=== PATIENT | female | born 1935 | race Caucasian/White ===

== ENCOUNTER 2017-03-22 13:57 | Inpatient (IN) | payer MEDICARE ==
[~2017-03-22] VITALS: Ht 157.5 cm; Wt 45.4 kg
[2017-03-22] MEDS: LEVOTHYROXINE 25 MCG TABLET. PO SCH (07:00)
[2017-03-22 16:46] VITALS: BP 159/79
[2017-03-22] MEDS ORDERED: SENN1TAB37 PO (18:30)
[2017-03-22] MEDS ORDERED: CYAN100031 PO (18:30)
[2017-03-22] MEDS ORDERED: SERT50TA8 PO (18:30)
[2017-03-22] MEDS ORDERED: ACET325T9 PO (18:30)
[2017-03-22] MEDS ORDERED: MIRT15TA3 PO (18:30)
[2017-03-22] MEDS ORDERED: CHOL10003 PO (18:30)
[2017-03-22] MEDS ORDERED: DIVA125C PO (18:30)
[2017-03-22] MEDS ORDERED: [UNRECOGNIZED DRUG - CODE] PO (18:30)
[2017-03-22] MEDS ORDERED: POLY17PO3 PO (18:30)
[2017-03-22] MEDS ORDERED: TRAM50TA PO (18:30)
[2017-03-22] MEDS ORDERED: HYDR25SU3 RC (18:30)
[2017-03-22] MEDS ORDERED: MAGN2400 PO (18:30)
[2017-03-22] MEDS ORDERED: LEVO25TA4 PO (18:30)
[2017-03-22] MEDS ORDERED: OLAN5TAB9 PO (18:30)
[2017-03-22] MEDS ORDERED: MEMA10TA PO (18:30)
[2017-03-22] MEDS ORDERED: LACT1CAP6 PO (18:30)
[2017-03-22] MEDS ORDERED: MELA3TAB12 PO (18:30)
[2017-03-22] MEDS ORDERED: BISA-42 RC (18:30)
[2017-03-22] MEDS ORDERED: NON FORMULARY ITEM (Melatonin 3 MG) PO PRN (18:45)
[2017-03-22] MEDS ORDERED: BISACODYL 5 MG TABLET.DR. PO PRN (18:45)
[2017-03-22] MEDS ORDERED: POLYETHYLENE GLYCOL 3350 17 GM PACKET. PO PRN (18:45)
[2017-03-22] MEDS ORDERED: MAGNESIUM HYDROXIDE 2,400 MG/30 ML ORAL.SUSP. PO PRN (18:45)
[2017-03-22] MEDS ORDERED: ACETAMINOPHEN 325 MG TABLET. PO PRN (18:45)
[2017-03-22] MEDS ORDERED: OLANZapine 5 MG TABLET PO PRN (18:45)
[2017-03-22] MEDS ORDERED: HYDROCORTISONE ACETATE 25 MG SUPP.RECT RC PRN (18:45)
[2017-03-22] MEDS ORDERED: traMADol 50 MG TABLET PO PRN (18:45)
[2017-03-22 19:15] VITALS: BP 156/72
[2017-03-22] MEDS: SENNOSIDES/DOCUSATE 8.6/50MG TABLET. PO SCH (20:49)
[2017-03-22] MEDS: MIRTAZAPINE 15 MG TABLET PO SCH (20:52)
[2017-03-22] MEDS: MEMANTINE 10 MG TABLET. PO SCH (20:53)
[2017-03-22 22:59] VITALS: BP 145/77
--- NOTE | 2017-03-22 23:52 | HP ---
ADMIT DATE: 03/22/2017 CHIEF COMPLAINT: Fall with right wrist fracture, right wrist pain. HISTORY OF PRESENT ILLNESS: The patient is a pleasant 81-year-old female who fell. She now has a right wrist fracture. She also has a laceration on her right scalp right above the ear. The ER doctor put two julieta on it and ____ the patient with consultation to Ortho. She is going to surgery in the morning. PAST MEDICAL HISTORY: Dementia. ALLERGIES: None. FAMILY HISTORY: Diabetes. SOCIAL HISTORY: She does not drink, smoke or take drugs. She lives in the facility. MEDICATIONS: Reviewed, please refer to the MRAD. REVIEW OF SYSTEMS: Unobtainable, the patient is too confused. PHYSICAL EXAMINATION: VITAL SIGNS: Temperature afebrile, pulse 67, respirations 18, blood pressure 133/69. GENERAL: She is alert. She is pleasantly confused. HEART: Normal S1, S2. LUNGS: Clear. ABDOMEN: Soft. EXTREMITIES: Trace edema. The right wrist is in a brace. Neurovascular bundle is intact. ENDOCRINE: No thyromegaly. LYMPHATICS: No cervical nodes. HEMATOPOIETIC: No bruising. HEENT: She has got a slight cut above the right ear with two julieta. ASSESSMENT AND PLAN: Fall with right wrist fracture in an elderly female who has dementia. She also has a laceration on her scalp. She has been admitted. Will consult Orthopedics. She is going to surgery in the morning. Continue home medicines. VILLA GARCIA DO DR: LINNEA/yoana JOB#: [id number] / [id number]
[2017-03-23] VITALS (10 sets, daily range): BP systolic 112–168; BP diastolic 56–78
--- NOTE | 2017-03-23 05:48 | ACF ---
Admission Forms Criteria MUSCULOSKELETAL DISEASE GRG Clinical Indications for Admission to Inpatient Care (Place 'X' for any and all applicable criteria): Hospital admission is needed for appropriate care of the patient because of 1 or more of the following: [X]I. Fracture, dislocation, or other musculoskeletal injury requiring inpatient care(medical) as indicated by 1 or more of the following(4)(5)(6)(7) [ ]a) Vertebral fracture requiring observation for instability or neurologic compromise (8) [ ]b) Compartment syndrome (proven or cannot be ruled out during observation level of care) (9) [ ]c) Limb-threatening injury [ ]d) Major injury requiring inpatient stabilization such as traction initiation or external fixation before internal fixation or closure of complex or open fracture [X]e) Major injury requiring inpatient treatment after emergency or observation level care (as appropriate) [ ]f) Severe pain requiring acute inpatient management [ ]g) Injury with suspicion of abuse or neglect (eg., child, dependent elderly) [ ]II. Newly diagnosed or suspected bone, joint, or orthopedic device infection (e.g., osteomyelitis, septic arthritis) needing 1 or more of the following(1)(2)(3) [ ]a) IV antibiotics that cannot be initiated in other than inpatient setting (e.g., patient too unstable or home infusion not available) [ ]b) Device removal or replacement [ ]c) Bone or soft tissue debridement [ ]d) Joint drainage (drain placement or repetitive aspirations) [ ]III. Severe rheumatologic disease (e.g., systemic lupus erythematosus, rheumatoid arthritis) with complications or comorbidities (Also use Optimal Recovery Care Criteria or General Recovery Criteria as appropriate on the basis of predominant condition), including 1 or more of the following( 10)(11)(12)(13) [ ]a) Severe infection (e.g., FREIGHT REPRESENTATIVE infection, sepsis) (14) [ ]b) Respiratory complications, including 1 or more of the following : [ ]i) Pleural effusion with respiratory compromise [ ]ii) Pulmonary hypertension with congestive failure [ ]iii) Respiratory failure [ ]iv) Pulmonary hemorrhage (15) [ ]c) Hematologic disease, including 1 or more of the following: [ ]i) Coagulopathy with bleeding [ ]ii) Thrombosis with hypercoagulable state [ ]iii) Thrombotic thrombocytopenic purpura [ ]d) Cerebritis with seizures, psychosis, or other severe abnormalities [ ]e) Vertebral destruction with monitoring needed for cervical myelopathy& possible respiratory compromise [ ]f) Exacerbation that requires inpatient treatment (e.g., intravenous immunosuppression) (16) [ ]g) Acute renal failure [ ]h) Cerebritis with seizures, psychosis, Altered mental status, or other neurologic abnormalities [ ]i) Pericardial effusion with tamponade [ ]j) Vertebral destruction, with monitoring needed for cervical myelopathy and possible respiratory compromise [ ]IV. Severe vasculitis with complications or comorbidities (Also use Optimal Recovery Care Criteria General Recovery Criteria as appropriate on the basis of predominant condition), including 1 or more of the following(11)(12)(17)(18)(19)(20) [ ]a) Exacerbation that requires inpatient treatment (e.g., intravenous immunosuppression) (19)(21) [ ]b) Pulmonary hemorrhage (15) [ ]c) FREIGHT REPRESENTATIVE vasculitis with seizures, psychosis, Altered mental status that is severe or persistent, or other severe abnormalities (22) [ ]d) Cerebral infarction [ ]e) Gastrointestinal ischemia [ ]f) Gangrene or threatened amputation [ ]g) Renal failure (16) [ ]h) Other significant complications of vasculitis ( eg., tissue or organ ischemia, organ dysfunction ) [ ]V. Severe myopathy as indicated by 1 or more of the following (28)(29) [ ]a) New onset of airway compromise or inability to swallow [ ]b) Respiratory deterioration with observation needed for impending respiratory failure [ ]c) Exacerbation that requires inpatient treatment (e.g., intravenous immunosuppression) [ ]. Severe crystal gout (arthropathy) indicated by 1 or more of the following (23)(24) [ ]a) Severe pain requiring acute inpatient management [ ]b) Exacerbation that requires inpatient treatment (e.g., intravenous treatment) [ ]VII.Rhabdomyolysis and 1 or more of the following (25)(26)(27) [ ]a) Acute renal failure [ ]b) Need for intravenous hydration after emergency or observation level care (as appropriate) [ ]c) Inability to maintain oral hydration [ ]d) Change in mental status [ ]e) Electrolyte abnormality that remains after emergency or observation level care (as appropriate) [ ]VIII Post amputation complication, as indicated by ANY ONE of the following [ ]a) Infection [ ]b) Dehiscence [ ]c) Myodesis failure [ ]IX. Severe pain requiring acute inpatient management due to musculoskeletal condition [ ]X. Musculoskeletal Disease and ALL of the following: [ ]a) Symptom or finding for which emergency and observation care have failed or are not considered appropriate (Use General Criteria: Observation Care as appropriate) [ ]b) Presence of ANY ONE of the following [ ]i) A General Admission Criteria [ ]ii) A Pediatric General Admission Criteria The original [facility] [employer] content created by [facility] [email or web address] has been revised. The portions of the content which have been revised are identified through the use of italic text or in bold, and [facility] has neither reviewed nor approved the modified material. All other unmodified content is copyright [facility] [email or web address]. Please see references footnoted in the original [email or web address] edition 2016 Admission Criteria Met?: Yes KADIE MORENO March 23, 2017 05:48
[2017-03-23] MEDS ORDERED: CLINDAMYCIN 600MG PREMIX 50 ML IV PRN (06:00)
[2017-03-23] MEDS: LEVOTHYROXINE 25 MCG TABLET. PO SCH (06:07)
[2017-03-23] MEDS: MEMANTINE 10 MG TABLET. PO SCH ×2 (09:00→20:57)
[2017-03-23] MEDS: SERTRALINE 50 MG TABLET. PO SCH (09:00)
[2017-03-23] MEDS: CHOLECALCIFEROL (VITAMIN D3) 1,000 UNIT TABLET PO SCH (09:00)
[2017-03-23] MEDS: SENNOSIDES/DOCUSATE 8.6/50MG TABLET. PO SCH ×2 (09:00→20:57)
[2017-03-23] MEDS: DIVALPROEX SPRINKLES 125 MG CAPSULE. PO SCH (09:00)
[2017-03-23] MEDS ORDERED: CLINDAMYCIN PREMIX 600 MG/50 ML BAG. IV ONE (09:30)
[2017-03-23] MEDS ORDERED: MEPERIDINE PF 25 MG/ML VIAL. IV PRN (10:45)
[2017-03-23] MEDS ORDERED: PROCHLORPERAZINE 10 MG/2 ML VIAL. IV PRN (10:45)
[2017-03-23] MEDS ORDERED: MIDAZOLAM HCL/PF 2 MG/2 ML VIAL. IV PRN ×2 (10:45)
[2017-03-23] MEDS ORDERED: fentaNYL PF VIAL 100 MCG/2 ML VIAL IV PRN ×4 (10:45→13:30)
[2017-03-23] MEDS ORDERED: HYDROmorphone 2 MG/ML VIAL IV PRN (10:45)
[2017-03-23] MEDS ORDERED: diphenhydrAMINE 50 MG/ML VIAL IV PRN (10:45)
[2017-03-23] MEDS ORDERED: MORPHINE SULFATE 4 MG/ML DISP.SYRIN. IV PRN ×2 (10:45→13:30)
[2017-03-23] MEDS ORDERED: LIDOCAINE 1% 1 ML SYRINGE. ID PRN (10:45)
[2017-03-23] MEDS ORDERED: PROPOFOL 20 ML IV ONE (11:23)
[2017-03-23] MEDS ORDERED: ONDANSETRON PF 4 MG/2 ML VIAL. ONE (11:23)
[2017-03-23] MEDS ORDERED: fentaNYL PF VIAL 100 MCG/2 ML VIAL ONE (11:23)
[2017-03-23] MEDS ORDERED: DEXAMETHASONE SOD PHOS 20 MG/5 ML VIAL. ONE (11:23)
[2017-03-23] MEDS ORDERED: SEVOFLURANE 61 TO 120 MINUTES. IH ONE (11:23)
[2017-03-23] MEDS ORDERED: LIDOCAINE 2% 100 MG/5 ML SYRINGE. ONE (11:23)
[2017-03-23] MEDS: IV RINGERS,LACTATED 1000ML 1,000 ML IV SCH ×2 (12:53→18:38)
--- NOTE | 2017-03-23 12:55 | PDOC ---
PROGRESS NOTES Chief Complaint Chief Complaint 1. traumatic right wrist fx with fall 2. severe dementia 3. from SNF plan: fu with dr. Frost to have sx today resume home meds ptot dysphagia 3 diet History of Present Illness History of Present Illness right forearm has splint on, swollen, pain, tenderness severe dementia, dosenot follow any commands or answer my questions Vitals Vitals Vital Signs Date Time Temp Pulse Resp B/P Pulse Ox O2 Delivery O2 Flow Rate FiO2 03/23/17 11:00 94.6 69 18 114/71 99 Room Air 94.6 Physical Exam Physical Exam [email or web address] General: Alert Heart: Regular rate, Normal S1, Normal S2 Lungs: Clear Abdomen: Normal bowel sounds Extremities: No clubbing, No cyanosis, Other (right forearm has splint on, swollen , dark red, tenderness) Skin: No rashes Review of Systems Review of Systems No fever, chills, sob or chest pain Comment Review of Relevant I have reviewed the following items uzair (where applicable) has been applied. Medications Current Medications Clindamycin Phosphate (Cleocin 600 Mg Premix) 50 ml @ 100 mls/hr 1X PREOP PRN IV PRIOR TO PROCEDURE; Start 03/23/17 at 06:00; Stop 03/23/17 at 18:00 Acetaminophen (Tylenol) 650 mg PRN Q6HRS PRN PO PAIN/FEVER; Start 03/22/17 at 18 :45 Bisacodyl (Dulcolax Tab) 10 mg PRN DAILY PRN PO CONSTIPATION; Start 03/22/17 at 18:45 Vitamin D (Vitamin D3) 1,000 unit DAILY PO ; Start 03/23/17 at 09:00 Divalproex Sodium (Depakote Sprinkles) 250 mg DAILY PO ; Start 03/23/17 at 09:00 Hydrocortisone Acetate (Anucort-Hc) 25 mg PRN QID PRN RC PAIN; Start 03/22/17 at 18:45 Levothyroxine Sodium (Synthroid) 25 mcg DAILY07 PO ; Start 03/22/17 at 07:00 Memantine (Namenda) 10 mg BID PO Last administered on 03/22/17 20:53; Start 03/22/17 at 21:00 Mirtazapine (Remeron) 15 mg QHS PO Last administered on 03/22/17 20:52; Start 03/22/17 at 21:00 Olanzapine (Zyprexa) 5 mg PRN DAILY PRN PO COMM; Start 03/22/17 at 18:45 Polyethylene Glycol (miraLAX PACKET) 17 gm PRN DAILY PRN PO CONSTIPATION; Start 03/22/17 at 18:45 Senna/Docusate Sodium (Senna Plus) 1 tab BID PO ; Start 03/22/17 at 21:00 Sertraline HCl (Zoloft) 75 mg DAILY PO ; Start 03/23/17 at 09:00 Tramadol HCl (Ultram) 50 mg PRN Q6HRS PRN PO PAIN Last administered on t 20:53; Start 03/22/17 at 18:45 Magnesium Hydroxide (Milk Of Magnesia) 2,400 mg PRN DAILY PRN PO CONGESTION; Start 03/22/17 at 18:45 Non-Formulary Medication 3 mg PRN DAILY PRN PO AGITATION; Start 03/22/17 at 18: 45; Status UNV Fentanyl Citrate (Fentanyl 2ml Vial) 50 mcg PRN Q5MIN PRN IV Acute Pain; Start 03/23/17 at 10:45; Stop 03/24/17 at 10:44 Morphine Sulfate 4 mg PRN Q10MIN PRN IV Moderate Pain; Start 03/23/17 at 10:45; Stop 03/24/17 at 10:44 Hydromorphone HCl (Dilaudid) 0.4 mg PRN Q10MIN PRN IV Moderate to severe pain; Start 03/23/17 at 10:45; Stop 03/24/17 at 10:44 Meperidine HCl (Demerol) 12.5 mg PRN Q5MIN PRN IV SHIVERING; Start 03/23/17 at 10:45; Stop 03/24/17 at 10:44 Prochlorperazine Edisylate (Compazine) 5 mg PRN Q6HRS PRN IV Nausea/Vomiting, 1st Choice; Start 03/23/17 at 10:45; Stop 03/24/17 at 10:44 Diphenhydramine HCl (Benadryl) 12.5 mg PRN Q2HR PRN IV ITCHING; Start 03/23/17 at 10:45; Stop 03/24/17 at 10:44 Midazolam HCl (Versed) 2 mg PRN 1X PRN IV PRIOR TO PROCEDURE; Start 03/23/17 at 10:45; Stop 03/24/17 at 10:44 Midazolam HCl (Versed) 1 mg PRN 1X PRN IV PRIOR TO PROCEDURE; Start 03/23/17 at 10:45; Stop 03/24/17 at 10:44 Fentanyl Citrate (Fentanyl 2ml Vial) 25 mcg PRN Q5MIN PRN IV X 2 DOSES FOR PAIN ; Start 03/23/17 at 10:45; Stop 03/24/17 at 10:44 Fentanyl Citrate 50 mcg 50 mcg PRN Q5MIN PRN IV X 2 DOSES FOR PAIN; Start at 10:45; Stop 03/24/17 at 10:44 Lactated Ringer's (Iv Lactated Ringers) 1,000 ml @ 125 mls/hr Q8H IV ; Start at 10:38; Stop 03/23/17 at 22:37 Lidocaine HCl 2 ml 1X PRN PRN ID IV START; Start 03/23/17 at 10:45; Stop at 10:44 Sevoflurane (Ultane) 60 ml STK-MED ONCE IH ; Start 03/23/17 at 11:23; Stop at 11:24; Status DC Fentanyl Citrate 100 mcg 100 mcg STK-MED ONCE .ROUTE ; Start 03/23/17 at 11:23; Stop 03/23/17 at 11:24; Status DC Propofol (Diprivan) 20 ml @ As Directed STK-MED ONCE IV ; Start 03/23/17 at 11:23 ; Stop 03/23/17 at 11:24; Status DC Lidocaine HCl (Lidocaine HCl 2% Abboject) 100 mg STK-MED ONCE .ROUTE ; Start 03/23/17 at 11:23; Stop 03/23/17 at 11:24; Status DC Ondansetron HCl (Zofran) 4 mg STK-MED ONCE .ROUTE ; Start 03/23/17 at 11:23; Stop 03/23/17 at 11:24; Status DC Dexamethasone Sodium Phosphate (Decadron) 20 mg STK-MED ONCE .ROUTE ; Start 03/23 at 11:23; Stop 03/23/17 at 11:24; Status DC Active Scripts Active Reported Tramadol Hcl 50 Mg Tablet 1 Tab PO PRN Q6HRS Sertraline Hcl 50 Mg Tablet 75 Mg PO DAILY Sennosides-Docusate Sodium Tab (Sennosides/Docusate Sodium) 1 Each Tablet 1 Each PO BID Polyethylene Glycol 3350 17 Gm Powd.pack 17 Gm PO Olanzapine 5 Mg Tablet 1 Tab PO PRN DAILY PRN Mirtazapine 15 Mg Tablet 1 Tab PO QHS Namenda (Memantine Hcl) 10 Mg Tablet 1 Tab PO BID Melatonin 3 Mg Tab.rapdis 3 Mg PO PRN DAILY PRN Milk Of Magnesia (Magnesium Hydroxide) 2,400 Mg/10 Ml Oral.susp 2,400 Mg PO PRN DAILY PRN Levothyroxine Sodium 25 Mcg Tablet 1 Tab PO DAILY Probiotic (Lactobacillus Acidophilus) 1 Each Capsule 1 Each PO Hydrocortisone Acetate 25 Mg Supp.rect 25 Mg RC PRN QID PRN Depakote Sprinkle (Divalproex Sodium) 125 Mg Cap.sprink 250 Mg PO DAILY B-12 (Cyanocobalamin (Vitamin B-12)) 1,000 Mcg Tablet.er 1,000 Mcg PO Vitamin D3 (Cholecalciferol (Vitamin D3)) 1,000 Unit Tablet 1 Tab PO DAILY Calcium Plus Menaq7 Adult Tab (Calcium Carb/Vitamin D3/Vit K2) 1 Each Tablet 1 Each PO Dulcolax (Bisacodyl) 5 Mg Tablet.dr 10 Mg RC PRN DAILY PRN Tylenol (Acetaminophen) 325 Mg Tablet 2 Tab PO Vitals/I & O Vital Sign - Last 24 Hours 03/22/17 03/22/17 03/22/17 03/22/17 16:46 19:15 19:30 20:53 Temp 97.7 98.3 97.7 98.3 Pulse 72 89 Resp 18 18 20 B/P 159/79 156/72 Pulse Ox 96 95 95 O2 Delivery Room Air Room Air Room Air Room Air 03/22/17 03/22/17 03/23/17 03/23/17 21:55 22:59 03:46 07:00 Temp 98.2 98.7 97.9 98.2 98.7 97.9 Pulse 78 74 69 Resp 20 18 18 18 B/P 145/77 112/58 139/68 Pulse Ox 95 95 97 98 O2 Delivery Room Air Room Air Room Air Room Air 03/23/17 03/23/17 03/23/17 07:00 07:40 11:00 Temp 97.9 94.6 97.9 94.6 Pulse 69 Resp 18 B/P 114/71 Pulse Ox 99 O2 Delivery Room Air Room Air Intake and Output 03/22/17 03/22/17 03/23/17 15:00 23:00 07:00 Intake Total 50 ml 0 ml Output Total 300 ml Balance -250 ml 0 ml VLAD ALVARENGA MD March 23, 2017 12:54
[2017-03-23] MEDS ORDERED: BUPIVACAINE 0.5% 50 ML VIAL. ONE (13:11)
[2017-03-23] MEDS ORDERED: ROPIVacaine 0.5% PF 30 ML VIAL. ONE (13:12)
[2017-03-23] MEDS ORDERED: ONDANSETRON PF 4 MG/2 ML VIAL. IV PRN (13:30)
[2017-03-23] MEDS ORDERED: POLYETHYLENE GLYCOL 3350 17 GM PACKET. PO PRN (13:30)
[2017-03-23] MEDS ORDERED: DEXTROSE 50% 25 GM / 50ML DISP.SYRIN. IV PRN (13:30)
[2017-03-23] MEDS ORDERED: MORPHINE SULFATE 2 MG/ML DISP.SYRIN. IV PRN (13:30)
[2017-03-23] MEDS ORDERED: HYDROcodone/APAP 7.5/325MG 1 TAB TABLET PO PRN ×2 (13:30)
[2017-03-23] MEDS ORDERED: oxyCODONE IR 5 MG TABLET PO PRN (13:30)
[2017-03-23] MEDS ORDERED: ePHEDrine PF IN SALINE 50 MG/5 ML DISP.SYRIN IV ONE (16:54)
[2017-03-23] MEDS: CLINDAMYCIN 600MG PREMIX 50 ML IV SCH ×2 (16:55→21:07)
[2017-03-23] MEDS: MIRTAZAPINE 15 MG TABLET PO SCH (20:57)
[2017-03-23] MEDS: HYDROcodone/APAP 5/325MG 1 TAB TABLET PO PRN (20:57)
--- NOTE | 2017-03-23 23:51 | OP ---
DATE OF SURGERY: 03/23/2017 PREOPERATIVE DIAGNOSIS: Displaced right distal radius fracture. POSTOPERATIVE DIAGNOSIS: Displaced right distal radius fracture. PROCEDURE: Operative reduction internal fixation, right distal radius fracture. SURGEON: Marcio Díaz M.D. ANESTHESIA: General. ESTIMATED BLOOD LOSS: About 15 mL. COMPLICATIONS: None. OPERATIVE INDICATIONS: The patient is an 81-year-old female who apparently had a fall in the [facility] and had a reverse obliquity distal radius fracture, displaced in nature. I was consulted on her treatment of this fracture and recommended operative treatment. We had also spoken to her attending physician about the plans for treatment given [facility]. She was actually apparently planned for discharge today, day of planned surgery, and I stated that while this may, depending on her condition, be able to be accomplished on an outpatient basis, it would really depend on her medical status, whether that is realistic ____ discharge plans, was determined to accomplish transfer to the medical unit under hospitalist care at the [facility] and therefore the patient was taking care of as an inpatient here. I have gone over with her the wrist fracture and the necessity for surgery. She was somewhat confused and had power of industrial roofer helper. Consent obtained while covering the rationale for surgery with her displaced fracture, the high risk of deformity with otherwise closed means even with closed reduction and therefore patient's family agreed to proceed. OPERATIVE TECHNIQUE: The patient was identified, procedure verified, patient placed in the supine position on the operating table. After adequate amounts of general anesthesia were administered, arm tourniquet was placed and the right upper extremity was prepped and draped in standard sterile fashion. After timeout was performed, the patient and procedure identified and verified. As expected, closed reduction was really not adequate to restore her fracture or maintain stability and open reduction was carried out as planned. After timeout was performed, the patient and procedure identified and verified. The right upper extremity was exsanguinated via Esmarch bandage. Tourniquet inflated to 250 mmHg, and a Juve approach was carried out to the distal radius. The flexor carpi radialis sheath was split and tendon retracted radially. Subperiosteal dissection was carried out of the distal radius and a [employer] Standard short plate was selected, centered down the distal radius and placed based on fluoroscopic guidance with open reduction carried out. A single nonlocking shaft screw was placed and distal locking screws were placed in both the proximal and distal rows checking to avoid any penetration at the joint surface checking for acceptable placement and length of each screw. Excellent fixation and near anatomic reduction was achieved. An additional proximal shaft screw was then placed in a non-locking fashion. Excellent alignment noted on multiple fluoroscopic views. The irrigation carried out with normal saline solution. Closure accomplished with buried Vicryl sutures, subcuticular Monocryl, Steri-Strips and Mastisol were applied and soft dressings were placed. The patient was returned to recovery room in stable condition having tolerated the procedure well. MARCIO DÍAZ MD DR: THAIS/yoana JOB#: [id number] / [id number]
[2017-03-24 03:35] VITALS: BP 126/51
[2017-03-24] MEDS: CLINDAMYCIN 600MG PREMIX 50 ML IV SCH (04:21)
[2017-03-24 04:39] LABS: BASO % 0 % (0-3); EOS % 0 % (0-3); HEMATOCRIT 28.4 % (36.0-47.0); HEMOGLOBIN 9.4 g/dL (12.0-15.5); LYMPH % 15 % (24-48); MEAN CORPUSCULAR HEMOGLOBIN 31 pg (25-35); MEAN CORPUSCULAR HGB CONC 33 g/dL (31-37); MEAN CORPUSCULAR VOLUME 94 fL (79-100); MONO % 15 % (0-9); NEUT % 70 % (31-73); PLATELET COUNT 180 x10^3/uL (140-400); RED BLOOD COUNT 3.01 x10^6/uL (3.50-5.40); WHITE BLOOD COUNT 6.6 x10^3/uL (4.0-11.0)
[2017-03-24 05:00] LABS: CALCIUM 8.6 mg/dL (8.5-10.1); CREATININE 0.8 mg/dL (0.6-1.0); GFR 68.7; POTASSIUM 3.6 mmol/L (3.5-5.1)
[2017-03-24] MEDS ORDERED: MAGNESIUM HYDROXIDE 2,400 MG/30 ML ORAL.SUSP. PO PRN (06:00)
[2017-03-24] MEDS: LEVOTHYROXINE 25 MCG TABLET. PO SCH (06:07)
[2017-03-24 07:00] VITALS: BP 106/61
[2017-03-24] MEDS: SENNOSIDES/DOCUSATE 8.6/50MG TABLET. PO SCH ×3 (07:56→21:22)
[2017-03-24] MEDS: HYDROcodone/APAP 5/325MG 1 TAB TABLET PO PRN ×2 (09:48→21:22)
[2017-03-24] MEDS: MEMANTINE 10 MG TABLET. PO SCH ×2 (09:48→21:22)
[2017-03-24] MEDS: DIVALPROEX SPRINKLES 125 MG CAPSULE. PO SCH (09:48)
[2017-03-24] MEDS: CHOLECALCIFEROL (VITAMIN D3) 1,000 UNIT TABLET PO SCH (09:48)
[2017-03-24] MEDS: SERTRALINE 50 MG TABLET. PO SCH (09:48)
[2017-03-24 11:04] VITALS: BP 93/39
[2017-03-24] MEDS ORDERED: TRAM50TA PO (12:29)
[2017-03-24 15:00] VITALS: BP 108/52
[2017-03-24] MEDS ORDERED: BISACODYL 10 MG SUPP.RECT. PR PRN (16:00)
[2017-03-24 19:10] VITALS: BP 115/61
[2017-03-24] MEDS: MIRTAZAPINE 15 MG TABLET PO SCH (21:22)
[2017-03-24 23:28] VITALS: BP 110/79
[2017-03-25 02:45] VITALS: BP 117/60
[2017-03-25 07:15] VITALS: BP 110/64
[2017-03-25] MEDS: SENNOSIDES/DOCUSATE 8.6/50MG TABLET. PO SCH ×2 (09:00→09:30)
[2017-03-25] MEDS: LEVOTHYROXINE 25 MCG TABLET. PO SCH (09:29)
[2017-03-25] MEDS: SERTRALINE 50 MG TABLET. PO SCH (09:30)
[2017-03-25] MEDS: MEMANTINE 10 MG TABLET. PO SCH (09:30)
[2017-03-25] MEDS: CHOLECALCIFEROL (VITAMIN D3) 1,000 UNIT TABLET PO SCH (09:30)
[2017-03-25] MEDS: DIVALPROEX SPRINKLES 125 MG CAPSULE. PO SCH (09:31)
--- NOTE | 2017-03-25 10:54 | PDOC3 ---
Discharge Summary [facility] Date of Admission: March 22, 2017 Discharge Date: March 25, 2017 Admitting Diagnosis 1. traumatic right wrist fx with fall 2. severe dementia 3. from SNF Problems: Final Diagnosis CONSULTS ortho Brief Hospital Course Ms. Rousseau is a 81 old F, severe dementia, was sent from [facility] , post fall and has right distal radius fracture. Pt got ORIF on 03/23. stable to dc back to SNF. aldactone dced. dc time 35min Physical Exam [id number] General: Alert Heart: Regular rate, Normal S1, Normal S2 Lungs: Clear Abdomen: Normal bowel sounds Extremities: No clubbing, No cyanosis, right forearm has dressing on. Skin: No rashes Problems: Disposition SNF CONDITION AT DISCHARGE: Improved Diet regular Scheduled Cholecalciferol (Vitamin D3) (Vitamin D3), 1 TAB PO DAILY, (Reported) Divalproex Sodium (Depakote Sprinkle), 250 MG PO DAILY, (Reported) Levothyroxine Sodium (Levothyroxine Sodium), 1 TAB PO DAILY, (Reported) Memantine Hcl (Namenda), 1 TAB PO BID, (Reported) Mirtazapine (Mirtazapine), 1 TAB PO QHS, (Reported) Sennosides/Docusate Sodium (Sennosides-Docusate Sodium Tab), 1 EACH PO BID, ( Reported) Sertraline Hcl (Sertraline Hcl), 75 MG PO DAILY, (Reported) Tramadol Hcl (Tramadol Hcl), 1 TAB PO PRN Q6HRS Scheduled PRN Bisacodyl (Dulcolax), 10 MG RC PRN DAILY PRN for CONSTIPATION, (Reported) Hydrocortisone Acetate (Hydrocortisone Acetate), 25 MG RC PRN QID PRN for PAIN, (Reported) Magnesium Hydroxide (Milk Of Magnesia), 2,400 MG PO PRN DAILY PRN for CONGESTION , (Reported) Melatonin (Melatonin), 3 MG PO PRN DAILY PRN for AGITATION, (Reported) Olanzapine (Olanzapine), 1 TAB PO PRN DAILY PRN for SEE COMMENTS, (Reported) Miscellaneous Medications Acetaminophen (Tylenol), 2 TAB PO, (Reported) Calcium Carb/Vitamin D3/Vit K2 (Calcium Plus Menaq7 Adult Tab), 1 EACH PO, ( Reported) Cyanocobalamin (Vitamin B-12) (B-12), 1,000 MCG PO, (Reported) Lactobacillus Acidophilus (Probiotic), 1 EACH PO, (Reported) Polyethylene Glycol 3350 (Polyethylene Glycol 3350), 17 GM PO, (Reported) Follow Up ortho in 2 weeks VLAD ALVARENGA MD March 25, 2017 10:54
[2017-03-25 11:17] VITALS: BP 107/72
== END 2017-03-25 14:40 | disposition home or self-care (01) | DRG 512 ==
LOC: 4 NORTH 17:07
PROVIDERS: ADMIT Internal Medicine; ATTEND Internal Medicine
PROC: 0HQ0XZZ Repair Scalp Skin, External Approach (ICD-10-PCS; 2017-03-22)
PROC: 0PSH04Z Reposition Right Radius with Internal Fixation Device, Open Approach (ICD-10-PCS; principal; 2017-03-23 11:30)
DX: S52.501A Unspecified fracture of the lower end of right radius, initial encounter for closed fracture (principal); S01.01XA Laceration without foreign body of scalp, initial encounter; F03.90 Unspecified dementia, unspecified severity, without behavioral disturbance, psychotic disturbance, mood disturbance, and anxiety; W19.XXXA Unspecified fall, initial encounter; Z88.1 Allergy status to other antibiotic agents; Z88.8 Allergy status to other drugs, medicaments and biological substances; Y93.89 Activity, other specified; Y92.89 Other specified places as the place of occurrence of the external cause; Y99.8 Other external cause status
CPT/HCPCS: 36415; 76000; 80048; 82306; 85027; 87641; C1713; J1100; J2270; J2405; J2704; J2795; J3010; J3490; J7120